=== PATIENT | male | born 1980 | race Caucasian/White ===

== ENCOUNTER 2023-06-21 02:33 | Inpatient (IN) | payer BC, OTHER, SELFPAY ==
[2023-06-20 17:11] VITALS: BP 194/113
[2023-06-20 17:30] LABS: % Basophils 0.3 % (0-2); % Eosinophils 2.1 % (0-6); % Immature Granulocytes 0.3 % (0-0.5); % Lymphocytes 11.8 % (20.5-51.1); % Monocytes 9.4 % (1.7-9.3); % Neutrophils 76.1 % (42.2-75.2); Absolute Eosinophils 0.2 10^3/uL (0-0.7); Absolute Lymphocytes 1.4 10^3/uL (1.2-3.4); Absolute Monocytes 1.1 10^3/uL (0.1-0.6); Absolute Neutrophils 8.9 10^3/uL (1.4-6.5); Hematocrit 36.3 % (39.0-52.0); Hemoglobin 12.7 g/dL (13.0-18.0); Mean Corpuscular Hgb 29.5 pg (27.0-31.0); Mean Corpuscular Volume 84.2 fL (80.0-94.0); Mean Platelet Volume 10.6 fL (7.4-10.4); Nucleated Red Blood Cells % 0 % (-); Platelet Count 412 10^3/uL (130-400); Red Blood Cell Count 4.31 10^6/uL (4.70-6.10); Red Cell Dist. Width 16.3 % (11.5-14.5); White Blood Cell Count 11.7 10^3/uL (4.8-10.8)
[2023-06-20 17:50] LABS: ALT (SGPT) 31 U/L (0-50); AST (SGOT) 50 U/L (17-59); Albumin 4.5 g/dl (3.5-5.0); Alkaline Phosphatase 60 U/L (38-126); Blood Urea Nitrogen 16 mg/dl (9-20); Carbon Dioxide 24 mmol/L (22-30); Chloride 98 mmol/L (98-107); Glucose 128 mg/dl (70-99); Potassium 4.1 mmol/L (3.5-5.1); Sodium 136 mmol/L (135-145); Total Bilirubin 1.4 mg/dl (0.2-1.3); Total Protein 7.7 g/dl (6.3-8.2); eGFR > 60.00
[2023-06-20 17:54] LABS: Troponin I 0.016 ng/ml
[2023-06-20 18:06] LABS: Lipase > 4000 U/L (23-300)
[2023-06-20 23:26] VITALS: BP 144/93
[2023-06-20 23:31] VITALS: BMI 30.5
--- NOTE | 2023-06-20 23:31 | ED.GENMED ---
History of Present Illness
General
Chief Complaint: Abdominal Pain
Source: patient
Time Seen by Provider: 06/20/23 23:18
Travel History
Have you had any contact with someone who has COVID-19?: No
Do you have any symptoms of coronavirus? Fever > 100 degrees, chills, cough, shortness of breath, sore throat, loss of taste or smell, muscle aches, or headache?: No
History of Present Illness
History of Present Illness:
42-year-old male with past medical history of GERD presenting emergency department for 2 and half days of periumbilical abdominal discomfort described to be a constant aching sensation with periods of more intense pain, radiating towards his back,
unrelieved with his Nexium, no associated nausea or vomiting but does admit to decreased p.o. intake to solids and like. Denies any history of similar. Denies any fevers, chills, rigors, bowel changes or urinary symptoms. Social history was
significant for drinking 3-5 drinks a few times per week and notes that he did have alcohol the Saturday night prior to his symptoms starting. No history of abdominal surgeries. Did not take anything for pain prior to arrival.
Past History
Past History
ED Past Medical History: GERD
ED Past Surgical History: Orthopedic
Social History
Tobacco: Non-smoker
Alcohol: Occasional
Drug: None
Personal: Single
Living: alone
Review of Systems
Review of Systems
All Other Systems: ROS reviewed and negative except as documented in HPI and ROS
Phy Exam
Physical Exam
Physical Exam:
GENERAL: Alert , appears mildly uncomfortable
EYE: clear conjunctiva b/l
HEAD: NCAT
ENT: o/p clr, mmm.
CARDIAC: Regular rate and rhythm .
LUNGS: Clear breath sounds bilaterally, no acute respiratory distress, no wheezes/rales/rhonchi
ABDOMEN: Soft, periumbilical tenderness, no r/g, no cvat
NEUROLOGICAL: Alert and oriented
SKIN: Warm and dry, skin intact.
MUSCULOSKELETAL: No edema, well perfused.
PSYCH: Normal and appropriate interaction.
Scores
Heart Failure Risk
Heart Failure Risk Score: Not Applicable
Heart Score for Chest Pain Patients
STEMI patient?: Not applicable
Withdrawal Assessment of Alcohol
Withdrawal Assessment Completed?: Not applicable
Course
Orders/Labs/Results
Orders:
Orders
06/20/23 17:13
Electrocardiogram (*1) Urgent
Reason for Study: Abdominal Pain
06/20/23 17:14
EKG- Treatment ONCE
06/20/23 17:19
Complete Blood Count/With Diff Urgent
Comprehensive Metabolic Panel Urgent
Lipase Urgent
Troponin I Urgent
06/20/23 23:31
HYDROmorphone [Dilaudid] 1 mg IV NOW STA
Abnormal Lab Results
06/20/23
17:19
WBC 11.7 H 10^3/uL
(4.8-10.8)
RBC 4.31 L 10^6/uL
(4.70-6.10)
Hgb 12.7 L g/dL
(13.0-18.0)
Hct 36.3 L %
(39.0-52.0)
RDW 16.3 H %
(11.5-14.5)
Plt Count 412 H 10^3/uL
(130-400)
MPV 10.6 H fL
(7.4-10.4)
Absolute Neuts (auto) 8.9 H 10^3/uL
(1.4-6.5)
Absolute Monos (auto) 1.1 H 10^3/uL
(0.1-0.6)
Neutrophils % 76.1 H %
(42.2-75.2)
Lymphocytes % 11.8 L %
(20.5-51.1)
Monocytes % 9.4 H %
(1.7-9.3)
Glucose 128 H mg/dl
(70-99)
Total Bilirubin 1.4 H mg/dl
(0.2-1.3)
Lipase > 4000 H* U/L
(23-300)
06/20/23 17:19
06/20/23 17:19
Vital Signs
Initial and Last Documented VS:
Initial Vital Signs
Temp Pulse Resp BP Pulse Ox
99.2 F 112 16 194/113 98
06/20/23 17:11 06/20/23 17:11 06/20/23 17:11 06/20/23 17:11 06/20/23 17:11
Last Documented Vital Signs
Temp Pulse Resp BP Pulse Ox
98.4 F 100 13 144/93 95
06/20/23 23:39 06/20/23 23:39 06/20/23 23:39 06/20/23 23:26 06/20/23 23:39
MDM/Problems Addressed
Differential Diagnosis Includes:
GERD, gastritis, pancreatitis, kidney stone, cholecystitis
MDM/Problems Addressed:
42-year-old male presenting emergency department for evaluation of periumbilical abdominal pain x 2-1/2 days, radiating towards his back, has not noted alcohol history. Labs ordered from triage which reveal a lipase within 4000. I suspect his
pancreatitis is likely secondary to alcohol use. Patient's blood pressure was also noted to be significantly elevated in triage but at time of my exam this is significantly improved. Due to his lipase level and presenting symptoms patient will
require admission for continued evaluation and treatment. Fluids ordered as well as 1 mg Dilaudid IV.
*Pulse Oximetry
Patient hypoxic: no
*Critical Care Note
Total Time (30-74mins, 75-104mins- exclusive of procedures): Not Applicable
Patient Management
Discussion with other providers: Hospitalist
Escalation/DeEscalation of care consider admission/obs:
Hospitalist team is aware and accepts for continued evaluation and treatment.
ED Attending Note
-
Portions of this chart may have been created with voice recognition software.� Occasional wrong word or��sound alike� substitutions may have occurred due to the inherent limitations of voice recognition software.
Discharge Plan
Departure
Patient Disposition: Admit
Date of Disposition: 06/20/23
Time of Disposition: 23:31
Presentation/result/management discussed w/ accepting MD/DO: Hospitalist
Discharge Problem:
Acute pancreatitis
Prescriptions:
No Action
esomeprazole magnesium [Nexium] 20 mg Capsule,Delayed Release(Dr/Ec)
20 mg PO DAILY
Interventions
Interventions:
*Risk Screen - Suicide Last Done: 06/20/23 17:11
*General Assessment Last Done: 06/20/23 17:11
*Neglect/Abuse Screening Last Done: 06/20/23 17:11
*ED COVID-19 Vaccine History Last Done: 06/20/23 17:11
Discharge Date and Time
Print Language: MONGOLIAN
[2023-06-20] MEDS: DILAUDID 1 MG IV (23:34)
[2023-06-21] VITALS (7 sets, daily range): BP systolic 138–163; BP diastolic 79–99; BMI 33.5
--- NOTE | 2023-06-21 01:43 | HPS.HSE ---
Family Physician
-
Family Physician: * NONE
Chief Complaint
-
Abd Pain
History of Present Illness
Patient is a 42y M with PMH significant for GERD who presents to ED complaining of abdominal pain. Patient states that he initially noted abdominal pain on Saturday evening. Pain was quite significant overnight and he slept poorly as a result.
He had pain in the upper abdomen - mostly on the L - with radiation to the back. He had no N/V. No fevers / chills. No changes in bowels / bladder function.
Patient states that pain seemed better on Saturday, but then returned again today prompting him to present to the ED for further evaluation.
Patient denies any prior history of similar symptoms.
He drinks socially and notes that he last had alcohol on Saturday. None since.
He has had relatively poor appetite since pain started on Saturday.
Medical History
Past Medical History
Past Medical History: Reports Other
Additional Past Medical History:
GERD
Past Surgical History: Reports Other
Additional Past Surgical History:
Left Shoulder Surgery
Thyroglossal Duct Cyst (childhood)
Social History
Tobacco: Non-smoker
Alcohol: Occasional (3-7 drinks per week over 2-3 days per week. No daily use.)
Drug: None
Family History
Family History: Other (Father: Prostate / Bladder Cancer Brother: RA, Celiac Disease)
Allergies / Home Medications
Allergies reflects when Allergies were last updated in [employer].
Home Medications with original date entered in [employer]
Allergy/Medication List:
Allergies
Allergy/AdvReac Type Severity Reaction Status Date / Time
erythromycin base Allergy Unknown Verified 06/20/23 17:12
Home Medications
esomeprazole magnesium 20 mg capsule,delayed release (Nexium) 20 mg PO DAILY 06/20/23
Review of Systems
-
History Source: Patient
A 12 point ROS was completed and negative except as noted: Yes
Constitutional: Denies Fever or Chills
Respiratory: Denies Cough or Trouble Breathing
Cardiac: Denies Chest Pain or Palpitations
Abdomen/GI: Reports Abdominal Pain and Anorexia; Denies Nausea, Vomiting, Diarrhea, Bloody Stools or Black Stools
: Reports Flank Pain; Denies Dysuria or Frequency
Musculoskeletal: Denies Joint Pain or Edema
Neurological: Denies Dizzy or Headache
Psych: Denies Depression or Anxiety
Physical Exam
Vital Signs
Vital Signs
Temp Pulse Resp BP Pulse Ox
98.4 F 91 22 142/89 98
06/20/23 23:39 06/21/23 00:30 06/21/23 00:30 06/21/23 00:00 06/21/23 00:30
Physical Exam
General: Other (42y M in no acute distress.)
HEENT: Moist mucous membranes
Respiratory: Clear; No Wheezes, Rales or Rhonchi
Cardiac: S1/S2 and Regular Rhythm; No Murmur
GI: Soft, Non Distended, Normal Bowel Sounds and Other (RUQ and epigastric tenderness. Pos BS. No rebound / guarding.)
Musculoskeletal: No Clubbing, No Cyanosis and No Edema
Neuro: AO x 3
Laboratory Results
-
06/20/23 17:19
06/20/23 17:19
Laboratory Results
Total Bilirubin 1.4 mg/dl (0.2-1.3) H 06/20/23 17:19
AST 50 U/L (17-59) 06/20/23 17:19
ALT 31 U/L (0-50) 06/20/23 17:19
Alkaline Phosphatase 60 U/L (38-126) 06/20/23 17:19
Troponin I 0.016 ng/ml 06/20/23 17:19
Lipase > 4000 U/L (23-300) H* 06/20/23 17:19
Impression/Plan
-
A/P: Patient is a 42y M with PMH significant for GERD who presents to ED c/o 2-3 days of abdominal pain.
Acute Pancreatitis
- Admit for further evaluation and treatment.
- NPO, IVF, pain control, etc.
- Follow for clinical improvement.
- Symptoms potentially secondary to alcohol; however, need to rule out gallstone disease.
- Tenderness on exam is predominately in the RUQ.
- Check US in the AM.
- GI versus Surgery consultation depending on those results.
- Advance diet as tolerate once symptoms are improved.
GERD
- Continue daily PPI.
DVT Prophylaxis: Lovenox
Code Status: Full
--- NOTE | 2023-06-21 02:30 | PTCARENOTE ---
Patient arrived to room 3352. Able to ambulate from stretcher onto bed w/o assistance. Oriented to room and use of call ardon. Reports RUQ abd pain 4/10 increasing to 6/10. PRN IV Dilaudid provided per pt request. Ambulated to BR; voided dark yellow
urine. IVF started. Pt aware of NPO for US of Abd in morning. Call ardon and tray table left within reach.
[2023-06-21] MEDS: DILAUDID 0.5 MG IV ×3 (02:43→17:49)
[2023-06-21] MEDS: LR 1000 IV ×4 (02:43→21:33)
[2023-06-21 06:25] LABS: Hematocrit 32.6 % (39.0-52.0); Hemoglobin 11.2 g/dL (13.0-18.0); Mean Corp Hgb Conc. 34.4 g/dL (33.0-37.0); Mean Corpuscular Hgb 29.2 pg (27.0-31.0); Mean Corpuscular Volume 85.1 fL (80.0-94.0); Mean Platelet Volume 10.7 fL (7.4-10.4); Platelet Count 305 10^3/uL (130-400); Red Blood Cell Count 3.83 10^6/uL (4.70-6.10); Red Cell Dist. Width 16.4 % (11.5-14.5); White Blood Cell Count 9.3 10^3/uL (4.8-10.8)
[2023-06-21 07:04] LABS: ALT (SGPT) 27 U/L (0-50); AST (SGOT) 40 U/L (17-59); Albumin 3.6 g/dl (3.5-5.0); Alkaline Phosphatase 50 U/L (38-126); Blood Urea Nitrogen 13 mg/dl (9-20); Calcium 9.1 mg/dl (8.4-10.2); Carbon Dioxide 27 mmol/L (22-30); Chloride 100 mmol/L (98-107); Direct Bilirubin 0.9 mg/dl (0.0-0.4); Estimated Creatinine Clearance 101 ml/min; Glucose 105 mg/dl (70-99); Sodium 134 mmol/L (135-145); Total Bilirubin 1.4 mg/dl (0.2-1.3); Total Protein 6.3 g/dl (6.3-8.2); eGFR > 60.00
[2023-06-21 07:28] LABS: Lipase 2288 U/L (23-300)
[2023-06-21] MEDS: NSS (PRESERVATIVE FREE) 10 ML IV ×2 (09:32→20:21)
[2023-06-21] MEDS: PROTONIX IV 40 MG IV ×2 (09:32→20:21)
--- NOTE | 2023-06-21 11:42 | W.PN.UPDATE ---
Update Note
Progress Note Update
Seen and examined independent of overnight physician.
States of periumbilical pain radiating to the back into the right flank. Denies any nausea or vomiting. States that pain started on Saturday and intermittently got worse yesterday. Does drink alcohol 2-3 times weekly. Drinks beers. Denies taking
any [id number] medications or herbal medications. Only takes Nexium at home.
General: in NAD
HEENT: Moist mucous membranes
Respiratory: Clear; No Wheezes, Rales or Rhonchi
Cardiac: S1/S2 and Regular Rhythm; No Murmur
GI: Soft, Non Distended, Normal Bowel Sounds and Other (RUQ and epigastric tenderness. Pos BS. No rebound / guarding.)
Musculoskeletal: No Clubbing, No Cyanosis and No Edema
Neuro: AO x 3
Skin-diffuse tattoos noted
A/P: Patient is a 42y M with PMH significant for GERD who presents to ED c/o 2-3 days of abdominal pain.
Acute Pancreatitis likely alcohol-related
- NPO, IVF, pain control, etc.
- Follow for clinical improvement.
- Symptoms potentially secondary to alcohol. No gallstones. Not on medication. Calcium normal.
- Ultrasound abdomen negative for gallstones or gallbladder pathology.
- CT abdomen pelvis ordered
- Advance diet as tolerate once symptoms are improved.
- Will ask GI for eval if with no improvement.
Alcohol usage
-MSAS protocol
-low likelihood of withdrawal.
GERD
- Continue daily PPI.
DVT Prophylaxis: Lovenox
Code Status: Full
--- NOTE | 2023-06-21 12:08 | CM ---
Patient with Dx Acute Pancreatitis likely alcohol-related.
Met with patient and Dahlia;
the patient resides with his in a 2 story house with 3 [address].
He has been independent in ADLs and ambulation.
Patient says he is active and works.
He has no DME or prior VN.
The patient has no PCP at present but plans on seeing his 's PCP soon.
Pharmacy - [facility]
CM Consult: Substance Abuse
Offered [facility] for [facility] resources/programs and patient looked puzzled, stating he has no issues with alcohol and his intake is moderate - a few times/week. Patient declined offer to speak with [facility].
No CM d/c needs identified.
Plan home.
--- NOTE | 2023-06-21 12:30 | PTCARENOTE ---
Received from IMU, VSS. Pt denies abdominal pain at present. No n/v. Oriented to room, call ardon in reach.
[2023-06-21] MEDS: OMNIPAQUE 50 ML PO (12:38)
--- NOTE | 2023-06-21 12:44 | PTCARENOTE ---
Pt weaned off oxygen from 2L to RA, pulse ox 95% on RA. Pt denies shortness of breath.
[2023-06-21] MEDS: LOVENOX 40 MG SC (17:49)
[2023-06-21] MEDS: THIAMINE INJECTION 200 MG IV (20:20)
[2023-06-21] MEDS: TYLENOL 650 MG PO (20:21)
[2023-06-22] MEDS: TYLENOL 650 MG PO ×2 (01:33→10:35)
[2023-06-22] MEDS: LR 1000 IV ×3 (05:03→12:14)
[2023-06-22] MEDS: DILAUDID 0.5 MG IV ×2 (05:07→09:07)
[2023-06-22 07:00] VITALS: BP 147/81
[2023-06-22 07:41] LABS: % Eosinophils 6.4 % (0-6); % Immature Granulocytes 0.3 % (0-0.5); % Neutrophils 60.3 % (42.2-75.2); Absolute Basophils 0.1 10^3/uL (0-0.2); Absolute Eosinophils 0.5 10^3/uL (0-0.7); Absolute Lymphocytes 1.6 10^3/uL (1.2-3.4); Absolute Monocytes 0.7 10^3/uL (0.1-0.6); Absolute Neutrophils 4.4 10^3/uL (1.4-6.5); Hematocrit 33.7 % (39.0-52.0); Hemoglobin 11.3 g/dL (13.0-18.0); Mean Corp Hgb Conc. 33.5 g/dL (33.0-37.0); Mean Corpuscular Volume 86.6 fL (80.0-94.0); Mean Platelet Volume 12.3 fL (7.4-10.4); Nucleated Red Blood Cells % 0 % (-); Platelet Count 360 10^3/uL (130-400); Red Blood Cell Count 3.89 10^6/uL (4.70-6.10); Red Cell Dist. Width 16.7 % (11.5-14.5); White Blood Cell Count 7.3 10^3/uL (4.8-10.8)
[2023-06-22 08:34] LABS: ALT (SGPT) 24 U/L (0-50); AST (SGOT) 36 U/L (17-59); Albumin 3.5 g/dl (3.5-5.0); Alkaline Phosphatase 51 U/L (38-126); Blood Urea Nitrogen 9 mg/dl (9-20); Calcium 9.4 mg/dl (8.4-10.2); Carbon Dioxide 28 mmol/L (22-30); Chloride 102 mmol/L (98-107); Estimated Creatinine Clearance 92 ml/min; Glucose 79 mg/dl (70-99); Lipase 1386 U/L (23-300); Potassium 4.7 mmol/L (3.5-5.1); Sodium 136 mmol/L (135-145); Total Bilirubin 1.8 mg/dl (0.2-1.3); Total Protein 6.3 g/dl (6.3-8.2); eGFR > 60.00
[2023-06-22] MEDS: PROTONIX IV 40 MG IV (08:49)
[2023-06-22] MEDS: NSS (PRESERVATIVE FREE) 10 ML IV (08:50)
[2023-06-22] MEDS: THIAMINE INJECTION 200 MG IV (08:50)
[2023-06-22] MEDS: FOLVITE 1 MG PO (08:50)
--- NOTE | 2023-06-22 11:54 | W.PN.HOSP.TC ---
Today's Communication/Plan
-
Clear liquid diet, advance as tolerated
Assessment / Plan
Assessment / Plan
Gen-AAOx3, NAD
HEENT-NC, AT, anicteric, clear oral mm
Neck-supple
CV-reg, no M, +S1/S2
Lungs-clear B/L
Abd-soft, NT, ND
Ext-no edema
Musculoskeletal-no cyanosis, clubbing
Skin-warm and dry
Neuro-grossly non-focal
Psych-calm, cooperative
Acute alcohol induced pancreatitis -improving clinically. Start clear liquid diet this morning, advance as tolerated to low-fat. Patient denies history of pancreatitis. CT and ultrasound do not show gallstones. Appears to be uncomplicated acute
pancreatitis.
Potential discharge later today versus tomorrow morning depending upon tolerance of solid food. Discussed with patient and nurse.
Alcohol use disorder - strict abstinence recommended especially in light of acute pancreatitis. Patient interested in abstaining. No signs or symptoms of withdrawal. Last drink was on Saturday.
GERD -controlled on [id number] Nexium.
Full code
Anticipated Discharge: Today
Subjective/Interval History
-
Date of Service: June 22, 2023
Patient seen and examined. Feeling better, less abdominal pain. Denies nausea or vomiting. Complaining of headache.
Objective Data
-
Labs:
Laboratory Results
06/22/23
05:45
WBC 7.3
Hgb 11.3 L
Hct 33.7 L
Plt Count 360
Sodium 136
Potassium 4.7
Chloride 102
Carbon Dioxide 28
BUN 9
Creatinine 1.1
Glucose 79
Calcium 9.4
Total Bilirubin 1.8 H
AST 36
ALT 24
Alkaline Phosphatase 51
Vital Signs:
Vital Signs
Temp Pulse Resp BP Pulse Ox
98.1 F 87 18 147/81 97
06/22/23 07:00 06/22/23 07:00 06/22/23 07:00 06/22/23 07:00 06/22/23 07:00
I&O
06/21/23 06/22/23 06/23/23
06:59 06:59 06:59
Intake Total 472 / 472 1300 / 1300
Output Total 450 / 450
Balance 1300 / 1300
Review of Systems
-
History Source: Patient
All other systems: Reviewed and negative
[2023-06-22 15:00] VITALS: BP 154/86
[2023-06-22] MEDS: LOVENOX SC (17:15)
--- NOTE | 2023-06-22 17:15 | W.DS.TRANS ---
DC Summary - [facility] W[facility]
-
Discharge Instructions:
Discharge Diagnosis/Procedures Acute pancreatitis
Diet Low Cholesterol,Low Fat
Activity As tolerated
Driving Restrictions As prior to admission
Bathing Restrictions None
Instructions:
Stand-Alone Forms:
Changes to Home Medications: No
Discharge Medications:
DC Medications w/original date entered in [employer]
esomeprazole magnesium 20 mg capsule,delayed release (Nexium) 20 mg PO DAILY Gastrointestinal Issue 06/20/23
Home Medication Changes
Pending Results: No
== END 2023-06-22 18:10 | disposition home or self-care (01) | DRG 440 ==
LOC: 4 WEST ACU 02:33
PROVIDERS: Emergency Medicine; Hospitalist; ADMITTING PHYSICIAN Hospitalist; ATTENDING PHYSICIAN Hospitalist; EMERGENCY PHYSICIAN Student in an Organized Health Care Education/Training Program
DX: K85.20 Alcohol induced acute pancreatitis without necrosis or infection (principal); K21.9 Gastro-esophageal reflux disease without esophagitis; F10.10 Alcohol abuse, uncomplicated
CPT/HCPCS: 74177; 76700; 80048; 80053; 80076; 83690; 84484; 85025; 85027; 93005; 96374; 99285; Q9967